=== PATIENT | male | born 1950 | race African-American/Black ===

== ENCOUNTER 2018-05-01 00:59 | Emergency (ER) | payer MEDICARE ==
[~2018-05-01] VITALS: Ht 170.2 cm; Wt 73.0 kg
[2018-05-01] MEDS ORDERED: FAMOTIDINE 20MG/2ML VIAL IV STA (01:19)
[2018-05-01] MEDS ORDERED: MORPHINE SULFATE 4 MG/ML CPJ (NOT FOR IM USE) IV STA (01:19)
[2018-05-01] MEDS ORDERED: ONDANSETRON HCL 4MG/2ML VIAL IV STA (01:19)
[2018-05-01] MEDS ORDERED: SODIUM CHLORIDE 0.9% 1,000 ML IV ONE (01:19)
[2018-05-01] MEDS ORDERED: ASPIRIN 81MG TABLET PO ONE (01:30)
[2018-05-01] MEDS ORDERED: LABETALOL HCL 20MG/4ML CARPUJECT IV ONE (01:30)
[2018-05-01 01:51] VITALS: BP 162/53
[2018-05-01 02:00] LABS: CLARITY URINE CLEAR (CLEAR); COLOR URINE YELLOW (YELLOW); KETONES URINE 1+ (NEGATIVE); LEUKOCYTE ESTERASE URINE NEGATIVE (NEGATIVE); NITRITE URINE NEGATIVE (NEGATIVE); OCCULT BLOOD URINE 2+ (NEGATIVE); PROTEIN URINE 2+ (NEGATIVE); SPECIFIC GRAVITY URINE 1.023 (1.005-1.030)
[2018-05-01 02:11] LABS: *AMPHETAMINES SCREEN URINE PRESUMTIVE POSITIVE (NEGATIVE); *BARBITURATES SCREEN URINE NEGATIVE (NEGATIVE); *BENZODIAZEPINES SCREEN URINE NEGATIVE (NEGATIVE); *COCAINE SCREEN URINE PRESUMTIVE POSITIVE (NEGATIVE); METHADONE URINE SCREEN NEGATIVE (NEGATIVE)
[2018-05-01 02:12] LABS: CANNABINOID URINE SCREEN PRESUMTIVE POSITIVE (NEGATIVE); OPIATES URINE SCREEN NEGATIVE (NEGATIVE); PHENCYCLIDINE URINE SCREEN NEGATIVE (NEGATIVE)
== END 2018-05-01 02:39 | disposition home or self-care (01) ==
LOC: ER 00:59
DX: R10.9 Unspecified abdominal pain (principal); I10 Essential (primary) hypertension; F14.10 Cocaine abuse, uncomplicated; F15.10 Other stimulant abuse, uncomplicated; F17.200 Nicotine dependence, unspecified, uncomplicated; F20.9 Schizophrenia, unspecified; F12.10 Cannabis abuse, uncomplicated; F16.10 Hallucinogen abuse, uncomplicated
CPT/HCPCS: 80305; 81003; 87086; 99284; J3490; J7030; Z7610

== ENCOUNTER 2019-06-21 14:33 | Emergency (ER) | payer MEDICARE, MEDICAID ==
[~2019-06-21] VITALS: Ht 172.7 cm; Wt 75.0 kg
[2019-06-21 14:44] VITALS: BP 140/88
== END 2019-06-21 16:52 | disposition home or self-care (01) ==
LOC: ER 14:33
DX: S00.212A Abrasion of left eyelid and periocular area, initial encounter (principal); F10.229 Alcohol dependence with intoxication, unspecified; Y90.9 Presence of alcohol in blood, level not specified; I10 Essential (primary) hypertension; Y04.2XXA Assault by strike against or bumped into by another person, initial encounter; Y93.89 Activity, other specified; Y92.89 Other specified places as the place of occurrence of the external cause
CPT/HCPCS: 99283